=== PATIENT | male | born 1990 | race Caucasian/White ===

== ENCOUNTER 2018-05-14 11:30 | Outpatient (RCR) | payer OTHER | END 2018-07-13 | LOC: MKS.ESL.PT | DX: M25.511 Pain in right shoulder (principal) ==

== ENCOUNTER → 2018-06-05 | Outpatient (CLI) | payer OTHER | LOC: COL.RAD 13:58 | DX: S43.491A Other sprain of right shoulder joint, initial encounter (principal); M75.21 Bicipital tendinitis, right shoulder | CPT/HCPCS: A9585; Q9967 ==

== ENCOUNTER → 2018-07-29 | Outpatient (REF) | LOC: ZLAB.WCH 16:00 | DX: Z01.89 Encounter for other specified special examinations (principal) ==

== ENCOUNTER → 2018-07-29 | Outpatient (CLI) | payer BC | LOC: COL.LAB 12:59 → COL.RAD 12:59 | DX: R55 Syncope and collapse (principal); R07.9 Chest pain, unspecified ==

== ENCOUNTER 2018-12-05 16:00 | Outpatient (RCR) | payer OTHER | END 2018-12-10 | LOC: WSPT | DX: M25.311 Other instability, right shoulder (principal); M75.21 Bicipital tendinitis, right shoulder; Z98.890 Other specified postprocedural states ==

== ENCOUNTER 2021-06-26 21:14 | Emergency (ER) | payer BC ==
[~2021-06-26] VITALS: Ht 175.3 cm; Wt 68.2 kg
[2021-06-26 22:59] VITALS: BP 125/91; PULSE 83; TEMP 98.1
== END 2021-06-26 23:09 | disposition home or self-care (01) ==
LOC: COL.ER 21:14
DX: R07.89 Other chest pain (principal); F41.9 Anxiety disorder, unspecified

== ENCOUNTER → 2021-11-01 | Outpatient (CLI) | payer BC | LOC: MHCPAIN 09:02 | DX: M79.18 Myalgia, other site (principal); M54.2 Cervicalgia; R07.89 Other chest pain; G89.29 Other chronic pain | CPT/HCPCS: G0463 ==

== ENCOUNTER → 2021-11-29 | Outpatient (CLI) | payer SELFPAY | LOC: MHCPAIN 13:05 | DX: M54.12 Radiculopathy, cervical region (principal); M25.512 Pain in left shoulder; M79.18 Myalgia, other site | CPT/HCPCS: G0463 ==

== ENCOUNTER → 2022-01-08 | Outpatient (CLI) | payer OTHER | LOC: MHCPAIN 14:34 | DX: M47.892 Other spondylosis, cervical region (principal); M54.12 Radiculopathy, cervical region; G89.29 Other chronic pain | CPT/HCPCS: G0463 ==

== ENCOUNTER → 2022-02-12 | Outpatient (CLI) | payer OTHER | LOC: MHCPAIN 14:04 | DX: M47.812 Spondylosis without myelopathy or radiculopathy, cervical region (principal); M54.12 Radiculopathy, cervical region; M54.2 Cervicalgia | CPT/HCPCS: G0463; J1100; Q9967 ==

== ENCOUNTER 2022-03-30 02:06 | Emergency (ER) | payer BC ==
[~2022-03-30] VITALS: Ht 175.3 cm; Wt 65.9 kg
[2022-03-30] MEDS ORDERED: ATIVAN 1MG T1 MG/TAB PO (02:10)
[2022-03-30 02:11] VITALS: TEMP 97.9
[2022-03-30] MEDS ORDERED: PROZAC 20MG20 MG PO (02:11)
[2022-03-30 02:37] LABS: BASO # 0.1 K/mm3 (0.0-0.2); BASO % 0.6 % (0.0-2.0); EOS # 0.3 K/mm3 (0.0-0.7); EOS % 2.5 % (0.0-4.0); GRAN # 3.4 K/mm3 (1.4-6.5); GRAN % 33.7 % (42.2-75.2); HEMOGLOBIN 15.7 g/dl (13.5-18.0); LYMPH # 4.9 K/mm3 (1.2-3.4); LYMPH % 48.7 % (20.0-51.0); MEAN CELL VOLUME 81 fl (80.0-100.0); MEAN CORPUSCULAR HEMOGLOBIN 28 pg (27-31); MEAN CORPUSCULAR HGB CONC 35 g/dl (33.0-37.0); MEAN PLATELET VOLUME 11.5 fl (7.4-10.4); MONO # 1.4 K/mm3 (0.1-0.6); MONO % 14.3 % (1.7-9.3); PLATELET COUNT 226 K/mm3 (130-400); RED BLOOD COUNT 5.53 M/mm3 (4.20-5.60); REDCELL DISTRIBUTION WIDTH-CV 12.1 % (11.5-14.5)
[2022-03-30 02:54] LABS: ALANINE AMINOTRANSFERASE 17 U/L (0-55); ALBUMIN 4.7 gm/dL (3.5-5.0); ALKALINE PHOSPHATASE 72 U/L (40-150); ANION GAP 10 mmol/L (7-16); AST,SGOT 16 U/L (5-34); BILIRUBIN,TOTAL 0.5 mg/dL (0.2-1.2); BLOOD UREA NITROGEN 10 mg/dL (9-21); CALCIUM 9.5 mg/dL (8.4-10.2); CARBON DIOXIDE 23 mmol/L (22-29); CHLORIDE 103 mmol/L (98-107); CREATININE, serum 1.01 mg/dL (0.72-1.25); GLUCOSE 108 mg/dL (70-99); SODIUM 136 mmol/L (136-145); TOTAL PROTEIN 8.1 gm/dL (6.2-8.1)
[2022-03-30 03:01] LABS: TROPONIN-I < 0.010 ng/mL (0.00-0.033)
[2022-03-30 03:24] VITALS: BP 124/61; PULSE 56
== END 2022-03-30 03:46 | disposition home or self-care (01) ==
LOC: COL.ER 02:06
PROVIDERS: Emergency Medicine
DX: I31.9 Disease of pericardium, unspecified (principal)
CPT/HCPCS: J1885